=== PATIENT | male | born 1985 | race African-American/Black ===

== ENCOUNTER 2020-02-21 14:13 | Inpatient (IN) | payer OTHER ==
[2020-02-21 15:08] LABS: #Eosinphils 0.1 thou/uL (0.0-0.7); #Lymphocytes 1.5 thou/uL (1.20-3.40); #Monocytes 0.4 thou/uL (0.11-0.59); #Neutrophils 3.6 thou/uL (1.40-6.50); %Basophils 0.6 % (0.0-1.0); %Lymphocytes 26.1 % (21.0-51.0); %Monocytes 7.4 % (0.0-10.0); %Neutrophils 63.9 % (42.0-75.0); Hemoglobin 13.2 g/dL (14.0-18.0); Mean Corpuscular HGB CONC 32.5 g/dL (32.0-36.0); Mean Corpuscular Hemoglobin 26.5 pg (27.0-31.0); Mean Corpuscular Volume 81.5 fL (78.0-98.0); Mean Platelet Volume 10.2 fL (7.4-10.4); Platelet Count 167 thou/uL (130-400); RBC Distribution Width 13.8 % (11.5-14.5); Red Blood Cell (RBC) Count 4.99 mill/uL (4.70-6.10); White Blood Cell (WBC) Count 5.6 thou/uL (4.8-10.8)
[2020-02-21 15:30] LABS: ALT (SGPT) 14 U/L (8-55); AST (SGOT) 11 U/L (5-34); Albumin 3.3 g/dL (3.5-5.0); Alkaline Phosphatase 103 U/L (40-110); Anion Gap 19 mmol/L (10-20); BUN (Urea Nitrogen) 17 mg/dL (8.9-20.6); Bilirubin, Total 0.2 mg/dL (0.2-1.2); Calc. Creatinine Clearance 0 mL/min (70-130); Calcium 8.6 mg/dL (7.8-10.44); Carbon Dioxide 20 mmol/L (22-29); Chloride 94 mmol/L (98-107); Estimated GFR-MDRD 54; Globulin 3.6 g/dL (2.4-3.5); Potassium 4.5 mmol/L (3.5-5.1); Protein, Total 6.9 g/dL (6.0-8.3); Sodium 128 mmol/L (136-145)
[2020-02-21 15:41] LABS: Glucose 796 mg/dL (70-105)
[2020-02-21 16:23] LABS: Bilirubin Negative (Negative); Blood, Urine Negative (Negative); Clarity Clear (Clear); Glucose, Urine (Dipstick) Greater than 1000 mg/dL (Negative); Ketone, Urine Negative (Negative); Leukocyte Negative Leu/uL (Negative); Nitrite Negative (Negative); Protein, Urine (Dipstick) Negative (Neg-Trace); Specific Gravity, Urine 1.025 (1.002-1.036); Urobilinogen Normal mg/dL (Less than 2)
[2020-02-21] MEDS ORDERED: Fentanyl 100 MCG/2 ML VIAL ONE (16:30)
[2020-02-21] MEDS ORDERED: Ondansetron PF 4 MG/2 ML Vial ONE (16:36)
[2020-02-21 16:43] LABS: Creatinine, Urine 23.07 mg/dL (63-166); Protein, Urine Random Quant Less than 10 mg/dL (1-14)
[2020-02-21 17:07] LABS: Magnesium 1.8 mg/dL (1.6-2.6)
--- NOTE | 2020-02-21 17:08 | RAD ---
RADIOGRAPH CHEST 1 VIEW: 02/21/20 HISTORY: 35-year-old male with left sided chest pain. FINDINGS: The lung volumes are low. There is no air space density, pulmonary edema, or pneumothorax. The later al costophrenic angles are sharp. IMPRESSION: No acute pulmonary findings. heather dunn POS: JIN
[2020-02-21 17:40] LABS: Base Excess-Venous -1.3 mmol/L (-2.0 to 3.0); Bicarbonate (HCO3v) 22.6 mmol/L (22.0-28.0); CO2 Tension (PvCO2) 34.4 mmHg (40.0-50.0); Calcium, Ionized 0.96 mmol/L (See Comments:); Chloride 102 mmol/L (98-107); Hemoglobin - Calc 12.2 g/dL (14.0-18.0); Potassium 4.5 mmol/L (3.5-5.1); Sodium 135 mmol/L (138-145); T. Carbon Dioxide 23.7 mmol/L (22.0-28.0); vO2 Saturation-calc 99.4 % (60.0-85.0)
[2020-02-21] MEDS ORDERED: INSULIN REGULAR IN 0.9 % NACL 100 UNIT/100 ML BAG ONE (17:59)
[2020-02-21] MEDS ORDERED: Dextrose 5% in Water 1,000 ML IV PRN (20:00)
[2020-02-21] MEDS ORDERED: Sodium Chloride 0.9% 1,000 ML IV PRN ×4 (20:00)
[2020-02-21] MEDS ORDERED: HUMULIN R 100 UNITS in Sodium Chloride 0.9% 100 ML IVPB SCH (20:00)
[2020-02-21] MEDS ORDERED: ADD ELECTROLYTE REPLACEMENT SET TO PROFILE FS SCH (20:00)
[2020-02-21] MEDS ORDERED: Dextrose 50% Abboject 50 ML SYRINGE SLOW IVP PRN (20:00)
[2020-02-21] MEDS ORDERED: Dextrose 5 %-0.45 % NaCl 1,000 ML IV PRN (20:00)
[2020-02-21] MEDS ORDERED: NS 0.9% w/ 20 MEQ KCL 1,000 ML/1,000 ML BAG IV PRN ×2 (20:00)
--- NOTE | 2020-02-21 20:22 | PDOC.HHP ---
Hospitalist HPI - History of Present Illness Abdominal pain History of Present Illness: 35-year-old morbidly obese with a history of diabetes mellitus type 1, on insulin therapy, history of gastroparesis resented emergency department with a complaint of abdominal pain onset this morning. Patient report experiencing nausea and abdominal bloatedness since yesterday and further matter did not eat much. In the ED, patient's blood sugar was noted to be in the 700s, no ketones. Patient diagnosed with hyperosmolar hyperglycemic state. She was given a bolus of insulin IV and started on insulin drip. Her fingerstick glucose decreased to 300 by the time I saw her in the ED. She was complaining of abdominal cramps and had already received a total 100 mcg of fentanyl IV. UA shows no evidence of UTI. She has no leukocytosis and not septic. Patient is admitted for further management. Hospitalist ROS - Review of Systems Other: As documented, all other systems reviewed and negative. Hospitalist History - Past Medical History Heme/Onc: reports: Anemia NOS (Chronic microcytic anemia) Psych: reports: Anxiety Musculoskeletal: reports: Chronic low back pain, Osteoarthritis Rheumatologic: reports: Fibromyalgia Infectious Disease: reports: HIV Endocrine: reports: Diabetes (Type 1 diabetes mellitus with severe diabetic neuropathy with complete sensation loss of both lower extremities from mid thigh below) - Past Surgical History Past Surgical History: reports: Cholecystectomy, Other (Bilateral foot surgery with amputation. History of all teeth removal secondary to destructive process of bone of unknown etiology) - Social History Alcohol: reports: None Drugs: reports: none - Exam General Appearance: awake alert General - other findings: Moderate distress from pain. Eye: PERRL, anicteric sclera ENT: normocephalic atraumatic, no oropharyngeal lesions, moist mucosa Neck: supple, symmetric, no thyromegaly Heart: RRR, no murmur Respiratory: CTAB, no wheezes, no rales, no ronchi Gastrointestinal: soft, non-distended, tender to palpation (Moderate) Extremities: no cyanosis, no edema Skin: normal turgor, no rashes Neurological: cranial nerve grossly intact, no focal deficits Musculoskeletal: normal tone, normal strength Psychiatric: A&O x 3 Psychiatric - other findings: Dysphoric Hospitalist Results - Labs Result Diagrams: 02/22/20 03:17 02/22/20 03:17 Lab results: WBC 5.6 thou/uL (4.8-10.8) 02/21/20 14:55 Hgb 13.2 g/dL (14.0-18.0) L 02/21/20 14:55 Hct 40.6 % (42.0-52.0) L 02/21/20 14:55 MCV 81.5 fL (78.0-98.0) 02/21/20 14:55 Plt Count 167 thou/uL (130-400) 02/21/20 14:55 Neutrophils % 63.9 % (42.0-75.0) 02/21/20 14:55 VBG pCO2 34.4 mmHg (40.0-50.0) L 02/21/20 17:41 VBG pO2 147.6 mmHg (35.0-45.0) H 02/21/20 17:41 Sodium 128 mmol/L (136-145) L 02/21/20 14:55 Potassium 4.5 mmol/L (3.5-5.1) 02/21/20 14:55 Chloride 94 mmol/L (98-107) L 02/21/20 14:55 Carbon Dioxide 20 mmol/L (22-29) L 02/21/20 14:55 BUN 17 mg/dL (8.9-20.6) 02/21/20 14:55 Creatinine 1.73 mg/dL (0.7-1.3) H 02/21/20 14:55 Glucose 796 mg/dL (70-105) H* 02/21/20 14:55 Calcium 8.6 mg/dL (7.8-10.44) 02/21/20 14:55 Total Bilirubin 0.2 mg/dL (0.2-1.2) 02/21/20 14:55 AST 11 U/L (5-34) 02/21/20 14:55 ALT 14 U/L (8-55) 02/21/20 14:55 Alkaline Phosphatase 103 U/L (40-110) 02/21/20 14:55 Troponin I Less than 0.010 ng/mL (< 0.028) 02/21/20 16:21 Serum Total Protein 6.9 g/dL (6.0-8.3) 02/21/20 14:55 Albumin 3.3 g/dL (3.5-5.0) L 02/21/20 14:55 Lipase 17 U/L (8-78) 02/21/20 16:21 Urine Ketones Negative mg/dL (Negative) 02/21/20 16:05 Urine Blood Negative (Negative) 02/21/20 16:05 Urine Nitrite Negative (Negative) 02/21/20 16:05 Ur Leukocyte Esterase Negative Juliana/uL (Negative) 02/21/20 16:05 Hospitalist H&P A/P - Problem (1) Hyperosmolar hyperglycemic state (HHS) Code(s): E11.00 - TYPE 2 DIAB W HYPROSM W/O NONKET HYPRGLY-HYPROS COMA ([facility]); E11.65 - TYPE 2 DIABETES MELLITUS WITH HYPERGLYCEMIA Status: Acute (2) COPD (chronic obstructive pulmonary disease) Status: Chronic (3) DM neuropathy with neurologic complication Code(s): E11.40 - TYPE 2 DIABETES MELLITUS WITH DIABETIC NEUROPATHY, UNSP Stat us: Chronic Qualifiers: Diabetes mellitus type: type 1 Diabetes mellitus complication detail: diabetic autonomic neuropathy Qualified Code(s): E10.43 - Type 1 diabetes mellitus with diabetic autonomic (poly)neuropathy (4) DM type 1 (diabetes mellitus, type 1) Status: Chronic Qualifiers: Diabetes mellitus complication status: with neurologic complications Diabetes mellitus complication detail: with autonomic neuropathy Qualified Code(s): E10.43 - Type 1 diabetes mellitus with diabetic autonomic (poly)neuropathy (5) Diabetic gastroparesis Code(s): E11.43 - TYPE 2 DIABETES W DIABETIC AUTONOMIC (POLY)NEUROPATHY; K31.84 - GASTROPARESIS Status: Chronic - Plan Plan: Admit to IMCU. Continue insulin drip started in the ED Glucose monitoring per protocol. Aggressive IV hydration. Keep n.p.o. Pain management COPD is stable. Bronchodilators PRN
[2020-02-21 22:30] LABS: Anion Gap 13 mmol/L (10-20); BUN (Urea Nitrogen) 16 mg/dL (8.9-20.6); Calc. Creatinine Clearance 0 mL/min (70-130); Carbon Dioxide 22 mmol/L (22-29); Chloride 109 mmol/L (98-107); Estimated GFR-MDRD Greater than 90; Glucose 208 mg/dL (70-105); Sodium 140 mmol/L (136-145)
[2020-02-21] MEDS: D5 1/2 NS w/20 mEq KCL 1,000 ML IV PRN (22:55)
[2020-02-22 00:08] VITALS: BMI 43.0
[2020-02-22] MEDS ORDERED: ALPRAZolam 0.5 MG TAB PO SCH (02:45)
[2020-02-22] MEDS: D5 1/2 NS w/20 mEq KCL 1,000 ML IV PRN (03:18)
[2020-02-22 03:46] LABS: #Eosinphils 0.1 thou/uL (0.0-0.7); #Lymphocytes 2.2 thou/uL (1.20-3.40); #Monocytes 0.5 thou/uL (0.11-0.59); #Neutrophils 2.4 thou/uL (1.40-6.50); %Basophils 0.3 % (0.0-1.0); %Eosinophils 2.8 % (0.0-10.0); %Lymphocytes 42.3 % (21.0-51.0); %Monocytes 9.3 % (0.0-10.0); %Neutrophils 45.3 % (42.0-75.0); Hemoglobin 11.5 g/dL (14.0-18.0); Mean Corpuscular HGB CONC 33.6 g/dL (32.0-36.0); Mean Corpuscular Hemoglobin 26.5 pg (27.0-31.0); Mean Corpuscular Volume 78.8 fL (78.0-98.0); Mean Platelet Volume 9.7 fL (7.4-10.4); Platelet Count 150 thou/uL (130-400); RBC Distribution Width 13.8 % (11.5-14.5); Red Blood Cell (RBC) Count 4.33 mill/uL (4.70-6.10); White Blood Cell (WBC) Count 5.3 thou/uL (4.8-10.8)
[2020-02-22 04:32] LABS: Anion Gap 13 mmol/L (10-20); BUN (Urea Nitrogen) 13 mg/dL (8.9-20.6); Calc. Creatinine Clearance 245 mL/min (70-130); Calcium 7.7 mg/dL (7.8-10.44); Carbon Dioxide 20 mmol/L (22-29); Chloride 109 mmol/L (98-107); Estimated GFR-MDRD Greater than 90; Glucose 177 mg/dL (70-105); Potassium 4.3 mmol/L (3.5-5.1); Sodium 138 mmol/L (136-145)
[2020-02-22] MEDS: Insulin Glargine 42 UNITS in Pre-Filled Syringe 1 EACH SC SCH (10:09)
[2020-02-22] MEDS: Enoxaparin Sodium 40 MG/0.4 ML SYRINGE SC SCH (10:10)
[2020-02-22 13:18] LABS: Anion Gap 11 mmol/L (10-20); BUN (Urea Nitrogen) 9 mg/dL (8.9-20.6); Calc. Creatinine Clearance 252 mL/min (70-130); Calcium 7.8 mg/dL (7.8-10.44); Carbon Dioxide 23 mmol/L (22-29); Chloride 108 mmol/L (98-107); Estimated GFR-MDRD Greater than 90; Glucose 206 mg/dL (70-105); Potassium 4.2 mmol/L (3.5-5.1); Sodium 138 mmol/L (136-145)
--- NOTE | 2020-02-22 14:13 | PDOC.HOSPP ---
- Subjective Encounter Date: 02/22/20 Encounter Time: 07:30 Subjective: Patient seen for follow-up regarding hyperosmolar state. Sleepy but arousable. Denies any complaints. - Objective Vital Signs & Weight: Vital Signs (12 hours) Temp 02/22/20 11:28 97.2 F L 02/22/20 07:18 97.6 F 02/22/20 04:50 97.4 F L Weight Admit Weight 283 lb Weight 283 lb Most Recent Monitor Data Heart Rate from ECG 101 NIBP 127/88 NIBP BP-Mean 101 Respiration from ECG 15 SpO2 100 I&O: 02/21/20 02/22/20 02/23/20 06:59 06:59 06:59 Intake Total 3000 Output Total 1200 750 Balance 1800 -750 Result Diagrams: 02/22/20 03:17 02/22/20 12:29 Additional Labs: Accuchecks 02/22/20 02/22/20 02/22/20 11:32 10:04 08:08 POC Glucose 210 H 262 H 254 H 02/22/20 02/22/20 02/22/20 06:25 05:07 04:03 POC Glucose 217 H 199 H 183 H 02/22/20 02/22/20 02/22/20 02:54 01:41 00:27 POC Glucose 166 H 149 H 144 H 02/21/20 02/21/20 02/21/20 23:39 22:29 21:20 POC Glucose 148 H 169 H 231 H 02/21/20 19:26 POC Glucose 356 H I reviewed patient's labs and MAR EKG Reviewed by me: Yes (Tele: NSR) Hospitalist ROS - Review of Systems Cardiovascular: denies: chest pain, palpitations, orthopnea, paroxysmal noc. dyspnea, edema, light headedness Gastrointestinal: denies: nausea, vomiting, abdominal pain, diarrhea, constipation, melena, hematochezia - Medication Medications: Active Medications Generic Name Dose Route Start Last Admin Trade Name Freq PRN Reason Stop Dose Admin Enoxaparin Sodium 40 mg 02/22/20 09:00 02/22/20 10:10 Enoxaparin Sodium 40 Mg/0.4 Ml Syringe SC 40 mg 0900 ESTEBAN Administration Potassium Chloride/Dextrose/Sod Cl 1,000 mls @ 250 mls/hr 02/21/20 20:00 02/22/20 03:18 D5 1/2 Ns W/20 Meq Kcl IV 1,000 mls INF PRN Administration STEP 4: DKA PROTOCOL Protocol Insulin Glargine 42 units/ 0.42 mls @ 0 mls/hr 02/22/20 09:00 02/22/20 10:09 Miscellaneous Medication SC 0.42 mls DAILY ESTEBAN Administration - Exam General - other findings: Morbid obesity Eye: anicteric sclera ENT: moist mucosa Neck: supple Heart: RRR Respiratory: CTAB Gastrointestinal: soft, non-tender Skin: no rashes Psychiatric: lethargic Hosp A/P - Plan -Assessment (1) Hyperosmolar hyperglycemic state (HHS) Code(s): E11.00 - TYPE 2 DIAB W HYPROSM W/O NONKET HYPRGLY-HYPROS COMA ([facility]); E11.65 - TYPE 2 DIABETES MELLITUS WITH HYPERGLYCEMIA Status: Acute (2) COPD (chronic obstructive pulmonary disease) Status: Chronic (3) DM neuropathy with neurologic complication Code(s): E11.40 - TYPE 2 DIABETES MELLITUS WITH DIABETIC NEUROPATHY, UNSP Status: Chronic Qualifiers: Diabetes mellitus type: type 1 Diabetes mellitus complication detail: diabetic autonomic neuropathy Qualified Code(s): E10.43 - Type 1 diabetes mellitus with diabetic autonomic (poly)neuropathy (4) DM type 1 (diabetes mellitus, type 1) Status: Chronic Qualifiers: Diabetes mellitus complication status: with neurologic complications Diabetes mellitus complication detail: with autonomic neuropathy Qualified Code(s): E10.43 - Type 1 diabetes mellitus with diabetic autonomic (poly)neuropathy (5) Diabetic gastroparesis Code(s): E11.43 - TYPE 2 DIABETES W DIABETIC AUTONOMIC (POLY)NEUROPATHY; K31.84 - GASTROPARESIS Status: Chronic - Plan Patient improved with intravenous insulin and intravenous hydration. Transition to subcutaneous insulin. Start diabetic diet. Transfer to medical floor when stable. COPD stable.
[2020-02-22] MEDS: Fentanyl 100 MCG/2 ML VIAL SLOW IVP PRN ×2 (16:35→22:40)
[2020-02-22] MEDS ORDERED: Dextrose 50% Abboject 50 ML SYRINGE SLOW IVP PRN (18:12)
[2020-02-22] MEDS ORDERED: Dextrose 5% in Water 1,000 ML IV PRN (18:12)
[2020-02-22] MEDS ORDERED: FLU VACC QS2020-21(6MOS UP)/PF 60 MCG/0.5 ML SYRINGE IM ONE (21:00)
[2020-02-22] MEDS ORDERED: Melatonin 3 MG TAB PO PRN (21:32)
[2020-02-22] MEDS: HumaLOG 300 UNITS/3 ML VIAL SC PRN (21:39)
[2020-02-23] MEDS: HumaLOG 300 UNITS/3 ML VIAL SC PRN (06:19)
[2020-02-23 07:18] VITALS: TEMP 97.2
[2020-02-23] MEDS: Enoxaparin Sodium 40 MG/0.4 ML SYRINGE SC SCH (08:41)
[2020-02-23] MEDS: Insulin Glargine 42 UNITS in Pre-Filled Syringe 1 EACH SC SCH (08:42)
[2020-02-23] MEDS ORDERED: Acetaminophen/Codeine 30-300mg Tablet PO SCH (10:00)
[2020-02-23] MEDS ORDERED: Zolpidem Tartrate 5 MG TAB PO SCH (21:00)
--- NOTE | 2020-02-24 03:26 | DIS ---
DATE OF ADMISSION: 02/21/2020 DATE OF DISCHARGE: 02/23/2020 PRIMARY CARE PROVIDER: ED Eldridge DISCHARGE DIAGNOSES: 1. Hyperosmolar hyperglycemic state. 2. Acute kidney injury. 3. Hyponatremia. 4. Morbid obesity. CONDITION OF PATIENT ON THE DAY OF DISCHARGE: Stable. I assessed the patient on the day of discharge. No chest pain or shortness of breath. Vital signs are stable. S1 and S2 are heard, regular. Lungs are clear to auscultation bilaterally. HOSPITAL COURSE: Patient is pleasant 35-year-old, who was admitted to the hospital for hyperosmolar hyperglycemic state. Patient received intravenous fluids and intravenous insulin with improvement biochemically and clinically. Patient is being discharged home in a stable condition. DISCHARGE MEDICATIONS: No change was made to pre-admission home medications. FOLLOWUP: Post acute care followup: With primary care provider in 3 days. ACTIVITY: As tolerated. DIET: Diabetic. DISCHARGE DESTINATION: Home. TIME SPENT: Total amount of time spent coordinating this discharge: Twenty-five minutes. Job ID: [id number]
== END 2020-02-23 11:15 | disposition home or self-care (01) | DRG 638 ==
LOC: ERS 14:13 → IMCU/EMU 21:29
PROVIDERS: ADMIT Student in an Organized Health Care Education/Training Program; ATTEND Student in an Organized Health Care Education/Training Program
DX: E11.00 Type 2 diabetes mellitus with hyperosmolarity without nonketotic hyperglycemic-hyperosmolar coma (NKHHC) (principal); N17.9 Acute kidney failure, unspecified; E87.1 Hypo-osmolality and hyponatremia; Z68.41 Body mass index [BMI] 40.0-44.9, adult; E66.01 Morbid (severe) obesity due to excess calories; M79.7 Fibromyalgia; M19.90 Unspecified osteoarthritis, unspecified site; D64.9 Anemia, unspecified; J44.9 Chronic obstructive pulmonary disease, unspecified; E11.43 Type 2 diabetes mellitus with diabetic autonomic (poly)neuropathy; K31.84 Gastroparesis; E11.40 Type 2 diabetes mellitus with diabetic neuropathy, unspecified; F41.9 Anxiety disorder, unspecified; Z88.5 Allergy status to narcotic agent; Z79.4 Long term (current) use of insulin; Z90.49 Acquired absence of other specified parts of digestive tract
CPT/HCPCS: 36415; 36416; 71045; 80048; 80053; 81003; 82010; 82330; 82570; 82803; 83690; 83735; 83930; 84156; 84484; 85025; 87086; 93005; J1650; J1815; J2405; J3010; J3480